=== PATIENT | female | born 1965 | race Caucasian/White ===

== ENCOUNTER 2018-02-13 09:17 | Outpatient (CLI) | payer OTHER | END 2018-02-13 09:18 | disposition home or self-care (01) | LOC: DI 09:17 | PROVIDERS: ATTEND Physician Assistant | DX: Q23.1 Congenital insufficiency of aortic valve (principal); E04.2 Nontoxic multinodular goiter | CPT/HCPCS: 76536; 93306 ==

== ENCOUNTER 2018-02-13 17:07 | Outpatient (CLI) | payer OTHER ==
--- NOTE | 2018-02-14 08:08 | Ultrasound Report ---
Reason: THYROID NODULE Procedure Date: 02/13/2018 Accession Number: [id number] / [id number] Procedure: US - Head or Neck Soft Tissue CPT Code: FULL RESULT: EXAM: THYROID ULTRASOUND EXAM DATE: 02/13/2018 05:14 PM. CLINICAL HISTORY: Thyroid nodule. COMPARISON: None. TECHNIQUE: Real time sonographic imaging of the thyroid was performed by the tools administrator. Multiple medical office representative static images were saved for review. FINDINGS: THYROID GLAND: Right Lobe: 5.3 x 2.1 x 1.7 cm, volume 10.0 cc. Normal background echotexture. Right Lobe Nodules: 1. Upper pole nodule with peripheral calcification and small peripheral blood flow, 0.5 cm in diameter. 2. Posterior medial mid nodule with peripheral calcification without blood flow, 0.8 x 0.8 x 1 cm. Left Lobe: 5.6 x 1.9 x 1.8 cm, volume 10.2 cc. Normal background echotexture. Left Lobe Nodules: 1. Lateral upper pole vascular echogenic nodule with hypoechoic halo, 0.7 x 0.5 x 0.7 cm. 2. Lateral midpole vascular echogenic nodule with peripheral hypoechoic halo, 0.5 cm in diameter. 3. Medial mid nonvascular nodule with hypoechoic halo heterogeneously, 0.8 x 0.8 x 0.7 cm. Isthmus: 0.3 cm AP. Isthmic Nodules: None. LYMPH NODES: No adenopathy demonstrated in the central or lateral compartment. IMPRESSION: 1. 3 vascular solid thyroid nodules, 2 in the in the left lobe and one in the right lobe, 0.5 cm and 0.7 cm in maximum dimension, sonographic features of low suspicion for malignancy. 2. Two nonvascular thyroid nodules, one in the right lobe and one in the left lobe, the dominant one of 1 cm located in the medial mid pole of the right lobe, sonographic features of very low suspicion for malignancy. 3. Continue thyroid ultrasound follow-up in 12-24 months is recommended. Management recommendations are based on 2015 [place] [employer] Management Guidelines for Adult Patients with Thyroid Nodules and Differentiated Thyroid Cancer. RADIA
== END 2018-02-13 17:08 | disposition home or self-care (01) ==
LOC: DI 17:07
PROVIDERS: ATTEND Physician Assistant
DX: E04.2 Nontoxic multinodular goiter (principal)
CPT/HCPCS: 76536

== ENCOUNTER 2018-04-03 17:50 | Outpatient (CLI) | payer OTHER ==
[2018-04-03] MEDS ORDERED: GADOBUTROL 10 MMOL/10 ML VIAL ONE (18:16)
[2018-04-03] MEDS ORDERED: GADOBUTROL 10 MMOL/10 ML VIAL IVP ONE (19:26)
--- NOTE | 2018-04-05 13:05 | MRI Report ---
Reason: COARCTATION OF AORTA,BICUSPID AORTIC VALVE Procedure Date: 04/03/2018 Accession Number: [id number] / [id number] Procedure: MRI - Aortic Arch Angio CPT Code: FULL RESULT: MRI ANGIOGRAM OF THE CHEST WITH AND WITHOUT CONTRAST INDICATION: Coarctation of aorta. Bicuspid aortic valve. COMPARISONS: None. TECHNIQUE: Multiphase axial coronal and oblique images were obtained. Pre- and postcontrast angiographic images were obtained of the thoracic aorta following intravenous administration of 9 mL of Gadavist. MIP reformations were performed. FINDINGS: Aorta: Maximal size of the mid ascending aorta measures approximately 3.6-3.7 cm. Aortic arch measures approximately 2.1-2.2 cm. Just distal to the takeoff of the left subclavian artery, the descending thoracic aorta measures approximately 1.7-1.8 cm. There is focal tapering and narrowing consistent with the reported coarctation in the proximal descending thoracic aorta distal to the takeoff of the left subclavian artery, which narrows to a segment which measures a minimal size approximately 10-11 mm. Just distal to the focal narrowing, the descending thoracic aorta measures 1.9-2 cm. No dissection. No significant collaterals are seen both proximal or distal to the coarctation. Pulmonary arteries are unremarkable with the mid main pulmonary artery measuring approximately 2.5 cm. Mediastinum: Heart size upper normal. Heterogeneous low signal intensity seen by aortic valve, which may be related to patient's history of a bicuspid aortic valve. No enlarged mediastinal or hilar lymph nodes are identified. Lungs and pleura: Unremarkable. No pleural effusions. Upper abdomen: Unremarkable. No bowel obstruction. No enlarged upper abdominal lymph nodes are seen. Retroperitoneum: Abdominal aorta and IVC are normal in caliber. There is thoracic/lumbar scoliosis. Mild degenerative changes. IMPRESSION: 1. Proximal descending thoracic aortic coarctation with a minimal size at the site of coarctation measuring approximately 10-11 mm. No evidence for significant collaterals. Mid ascending aorta measures up to 3.6-3.7 cm. 2. Heart size upper normal.
== END 2018-04-03 17:51 | disposition home or self-care (01) ==
LOC: DI 17:50
PROVIDERS: ATTEND Physician Assistant
DX: Q25.1 Coarctation of aorta (principal); Q23.1 Congenital insufficiency of aortic valve
CPT/HCPCS: 71555; A9585

== ENCOUNTER 2018-04-30 10:41 | Outpatient (CLI) | payer OTHER ==
--- NOTE | 2018-04-30 15:09 | XRAY Report ---
Reason: THORACIC BACK PAIN Procedure Date: 04/30/2018 Accession Number: [id number] / [id number] Procedure: WCP - Thoracic Spine 2 View CPT Code: FULL RESULT: EXAM: THORACIC SPINE RADIOGRAPHY. EXAM DATE: 04/30/2018 10:52 AM. CLINICAL HISTORY: Thoracic back pain. COMPARISON: None. TECHNIQUE: 2 views. FINDINGS: Alignment: Normal. No spondylolisthesis or scoliosis. Bones: No fractures or bone lesions. Disks: Normal. Disk heights are maintained. Soft Tissues: Normal. The visualized lungs and cardiomediastinal silhouette are normal. IMPRESSION: Normal thoracic spine radiography. RAD[facility]
== END 2018-04-30 10:42 | disposition home or self-care (01) ==
LOC: DI.WCP 10:41
PROVIDERS: ATTEND Physician Assistant
DX: M54.6 Pain in thoracic spine (principal)
CPT/HCPCS: 72070

== ENCOUNTER 2018-04-30 16:41 | Outpatient (CLI) | payer OTHER ==
--- NOTE | 2018-05-02 08:28 | Mammography Report ---
Reason: SCREENING MAMMO Procedure Date: 04/30/2018 Accession Number: [id number] / [id number] Procedure: [facility] - Screening Mammo w/Elvin CPT Code: FULL RESULT: EXAM: Screening Mammo w/Elvin DATE: 04/30/2018 5:19 PM CLINICAL HISTORY: Routine screening. No reported personal or family history of breast cancer. TECHNIQUE: Bilateral CC and MLO views were obtained. COMPARISON: None available at the time of this dictation. If comparisons are provided, an addendum report can be issued. FINDINGS: The breasts demonstrate heterogeneously dense fibroglandular parenchyma bilaterally. Right breast: There are no suspicious masses, calcifications or areas of distortion. There is symmetric duct ectasia. Reddish-brown nipple discharge occurred during both views of the mammogram noticed by the technologist. Left breast: There is symmetric duct ectasia. There is a 2 cm asymmetry resembling glandular tissue in the posterior upper inner breast seen best on 3-D imaging, reference MLO slice 50 and CC slice 43. In the lateral subareolar breast, there is a mostly circumscribed partially obscured 14 mm oval mass again seen best on 3-D imaging, reference MLO slice 24 and CC slice 20. No suspicious calcifications or areas of distortion. IMPRESSION: Right breast: Nonspontaneous possibly bloody nipple discharge noted during performance of screening mammography. Incomplete. BI-RADS Category 0. Recommend additional imaging with spot compression mammography in the subareolar breast and subareolar ultrasound. Left breast: Posterior upper inner asymmetry and lateral subareolar mass require additional imaging. Incomplete. BI-RADS Category 0. Recommend additional imaging and ultrasound. BI-RADS CATEGORY 0: Incomplete examination STANDARD QUALIFYING STATEMENTS: 1. This examination was not reviewed with the aid of Computer-Aided Detection (CAD). 2. A negative or benign imaging report should not preclude biopsy if clinically suspicious findings are present. 3. Dense breasts may obscure an underlying neoplasm. 4. This examination was reviewed with the aid of 3D breast imaging (tomosynthesis).
== END 2018-04-30 16:42 | disposition home or self-care (01) ==
LOC: DI 16:41
DX: Z12.31 Encounter for screening mammogram for malignant neoplasm of breast (principal)
CPT/HCPCS: 77063; 77067

== ENCOUNTER 2018-05-13 11:05 | Outpatient (CLI) | payer OTHER ==
--- NOTE | 2018-05-13 15:32 | Mammography Report ---
Reason: ABN MAMMO ADDITIONAL VIEWS Procedure Date: 05/13/2018 Accession Number: [id number] / [id number] Procedure: [facility]ORIA - Diagnostic Dig Bilat CPT Code: FULL RESULT: EXAM: Diagnostic Dig Bilat DATE: 05/13/2018 12:28 PM CLINICAL HISTORY: Single episode of nonspontaneous bloody nipple discharge from the right nipple during screening mammogram procedure 04/30/2018. Recall from screening for asymmetry upper inner left breast. No reported personal or family history of breast cancer. TECHNIQUE: (B) - Bilateral CC and MLO cone magnification. Bilateral 90 degree 2-D 3-D mammography. Real-time ultrasound was performed by both the technologist and the radiologist. COMPARISON: 04/30/2018 through 08/25/2013 FINDINGS: Right breast: There are no suspicious masses, calcifications or areas of distortion. There is stable duct ectasia and milk of calcium calcifications noted. Targeted ultrasound of the nipple and periareolar breast in a wide area is performed by both the technologist and the radiologist. There is duct ectasia with multiple anechoic fluid distended ducts. Few ducts show minimal low-level mobile internal echoes. No intraductal masses or concerning sonographic findings Left breast: Additional images reconfirm a 15 mm new asymmetry in the posterior upper inner breast at approximately 11:00, 12 cm from the nipple. There are no suspicious calcifications or areas of distortion. Stable duct ectasia as well as a long-term stable oval mass in the lateral subareolar breast consistent with cyst. Targeted ultrasound at 11:00, 8 cm from the nipple demonstrates sonographic correlate to mammographic finding as a mixed hypoechoic/hyperechoic, parallel orientation, nonvascular, non-mass finding measuring 14 x 9 x 6 mm. There is an a smaller non-circumscribed hypoechoic core surrounded by a thicker rind of hyperechoic tissue. PARENCHYMAL PATTERN: (D) - The breasts demonstrate heterogeneously dense fibroglandular parenchyma bilaterally. IMPRESSION: Right breast: Benign imaging findings. No imaging findings to correspond to single episode of nonspontaneous bloody nipple discharge. Probably benign. BI-RADS Category 3. Clinical follow-up for recurrence of nipple discharge is recommended; patient was instructed to seek further evaluation for recurrence of symptoms or new symptoms/concerns. Otherwise, recommend diagnostic mammogram and sonography in 6 months to ensure expected stability. Left breast: 15 mm asymmetry posterior upper inner breast corresponds to a non-mass finding at ultrasound 11:00 8 cm from the nipple. Suspicious. BI-RADS Category 4. Ultrasound-guided needle biopsy and marker placement is recommended. Biopsy scheduling was facilitated at the time of this imaging appointment. RECOMMENDATION: (BIOPSY) - left breast.; (6MOS) -recommend 6 month follow-up imaging right breast. BI-RADS CATEGORY: STANDARD QUALIFYING STATEMENTS: 1. This examination was not reviewed with the aid of Computer-Aided Detection (CAD). 2. A negative or benign imaging report should not preclude biopsy if clinically suspicious findings are present. 3. Dense breasts may obscure an underlying neoplasm. 4. This examination was reviewed with the aid of 3D breast imaging (tomosynthesis).
--- NOTE | 2018-05-13 15:36 | Ultrasound Report ---
Reason: ABNORMAL FINDINGS ON MAMMOGRAM Procedure Date: 05/13/2018 Accession Number: [id number] / [id number] Procedure: US - Breast Unilateral Limited CPT Code: FULL RESULT: Reason: ABN MAMMO ADDITIONAL VIEWS Procedure Date: 05/13/2018 Accession Number: [id number] / [id number] Procedure: GLORIA - Diagnostic Dig Bilat CPT Code: FULL RESULT: EXAM: Diagnostic Dig Bilat DATE: 05/13/2018 12:28 PM CLINICAL HISTORY: Single episode of nonspontaneous bloody nipple discharge from the right nipple during screening mammogram procedure 04/30/2018. Recall from screening for asymmetry upper inner left breast. No reported personal or family history of breast cancer. TECHNIQUE: (B) - Bilateral CC and MLO cone magnification. Bilateral 90 degree 2-D 3-D mammography. Real-time ultrasound was performed by both the technologist and the radiologist. COMPARISON: 04/30/2018 through 08/25/2013 FINDINGS: Right breast: There are no suspicious masses, calcifications or areas of distortion. There is stable duct ectasia and milk of calcium calcifications noted. Targeted ultrasound of the nipple and periareolar breast in a wide area is performed by both the technologist and the radiologist. There is duct ectasia with multiple anechoic fluid distended ducts. Few ducts show minimal low-level mobile internal echoes. No intraductal masses or concerning sonographic findings Left breast: Additional images reconfirm a 15 mm new asymmetry in the posterior upper inner breast at approximately 11:00, 12 cm from the nipple. There are no suspicious calcifications or areas of distortion. Stable duct ectasia as well as a long-term stable oval mass in the lateral subareolar breast consistent with cyst. Targeted ultrasound at 11:00, 8 cm from the nipple demonstrates sonographic correlate to mammographic finding as a mixed hypoechoic/hyperechoic, parallel orientation, nonvascular, non-mass finding measuring 14 x 9 x 6 mm. There is an a smaller non-circumscribed hypoechoic core surrounded by a thicker rind of hyperechoic tissue. PARENCHYMAL PATTERN: (D) - The breasts demonstrate heterogeneously dense fibroglandular parenchyma bilaterally. IMPRESSION: Right breast: Benign imaging findings. No imaging findings to correspond to single episode of nonspontaneous bloody nipple discharge. Probably benign. BI-RADS Category 3. Clinical follow-up for recurrence of nipple discharge is recommended; patient was instructed to seek further evaluation for recurrence of symptoms or new symptoms/concerns. Otherwise, recommend diagnostic mammogram and sonography in 6 months to ensure expected stability. Left breast: 15 mm asymmetry posterior upper inner breast corresponds to a non-mass finding at ultrasound 11:00 8 cm from the nipple. Suspicious. BI-RADS Category 4. Ultrasound-guided needle biopsy and marker placement is recommended. Biopsy scheduling was facilitated at the time of this imaging appointment. RECOMMENDATION: (BIOPSY) - left breast.; (6MOS) -recommend 6 month follow-up imaging right breast. BI-RADS CATEGORY: STANDARD QUALIFYING STATEMENTS: 1. This examination was not reviewed with the aid of Computer-Aided Detection (CAD). 2. A negative or benign imaging report should not preclude biopsy if clinically suspicious findings are present. 3. Dense breasts may obscure an underlying neoplasm. 4. This examination was reviewed with the aid of 3D breast imaging (tomosynthesis).
== END 2018-05-13 11:06 | disposition home or self-care (01) ==
LOC: DI 11:05
PROVIDERS: ATTEND Physician Assistant
DX: R92.8 Other abnormal and inconclusive findings on diagnostic imaging of breast (principal); N60.41 Mammary duct ectasia of right breast; N60.42 Mammary duct ectasia of left breast
CPT/HCPCS: 76642; 77062; 77066

== ENCOUNTER 2018-05-15 10:47 | Outpatient (CLI) | payer OTHER ==
[~2018-05-15 10:47] MED LIST: BUFFERED LIDOCAINE 10 ML SYRINGE ONE
--- NOTE | 2018-05-15 12:48 | Mammography Report ---
Reason: POST BIOPSY CLIP FILMS Procedure Date: 05/15/2018 Accession Number: [id number] / [id number] Procedure: [facility]OR[facility] - Diagnostic Dig LT CPT Code: FULL RESULT: EXAM: Biopsy Breast Core, Diagnostic Dig LT DATE: 05/15/2018 12:32 PM CLINICAL HISTORY: Developing asymmetry with sonographic correlate posterior upper inner left breast, 11:00 8 cm from nipple, for biopsy. TECHNIQUE: Informed consent was obtained. Entry site was localized and marked on the skin, and the site was prepped and draped in the usual sterile fashion. The skin site and deeper tissues were anesthetized with 10 cc of 1% buffered lidocaine. A small dermatotomy was made in the skin. A 13-gauge needle guide was advanced to the periphery of the sonographic finding. A total of 4, 14-gauge core biopsies were obtained with an Achieve needle system with returns of long cores of tissue. Samples were sent in formalin for histologic analysis. A cork shaped clip was placed at the biopsy site. Devices were removed, hemostasis was achieved, and the area was prepped and draped in the usual fashion. The patient tolerated the procedure well and without complication. Postprocedural mammogram shows biopsy clip in expected location, associated with the mammographic asymmetry of concern in the posterior upper inner breast. COMPARISON: 05/13/2018 through 08/25/2013 FINDINGS/IMPRESSION: Successful ultrasound-guided biopsy of developing asymmetry upper inner left breast, 11:00 8 cm from the nipple. Final recommendations are pending results of the histology; an addendum to this report will be issued when histology results are available for radiologic/pathologic concordance.
[2018-05-15] MEDS ORDERED: BUFFERED LIDOCAINE 10 ML SYRINGE IU ONE (13:18)
== END 2018-05-15 10:48 | disposition home or self-care (01) ==
LOC: DI 10:47
PROVIDERS: ATTEND Physician Assistant
DX: R92.8 Other abnormal and inconclusive findings on diagnostic imaging of breast (principal)
CPT/HCPCS: 19083

== ENCOUNTER 2018-06-27 07:33 | Outpatient (CLI) | payer OTHER ==
--- NOTE | 2018-06-27 10:45 | Ultrasound Report ---
Reason: ABDOMINAL PAIN, RUQ Procedure Date: 06/27/2018 Accession Number: [id number] / [id number] Procedure: US - Abdomen Limited CPT Code: FULL RESULT: EXAM: ABDOMEN ULTRASOUND LIMITED, RUQ EXAM DATE: 06/27/2018 08:09 AM. CLINICAL HISTORY: Abdominal pain, right upper quadrant. COMPARISON: None. TECHNIQUE: Real-time scanning was performed with static images obtained. FINDINGS: Liver: Normal in size and echotexture. 14.8 cm. Main portal vein flow: Hepatopetal. Gallbladder: Normal. No stones, wall thickening, or sonographic Katz's sign. Biliary System: CBD measures 4 mm. No intrahepatic or extrahepatic ductal dilatation. Other: The visualized right kidney appears normal. IMPRESSION: Normal. No cholelithiasis or cholecystitis. RADIA
== END 2018-06-27 07:34 | disposition home or self-care (01) ==
LOC: DI 07:33
PROVIDERS: ATTEND Internal Medicine Gastroenterology
DX: R10.11 Right upper quadrant pain (principal)
CPT/HCPCS: 76705

== ENCOUNTER 2018-07-02 12:10 | Outpatient (CLI) | payer OTHER ==
[2018-07-02] MEDS ORDERED: IOVERSOL 320 50 ML VIAL ONE (12:23)
[2018-07-02] MEDS ORDERED: IOVERSOL 320 100 ML VIAL IVP ONE ×2 (12:24→13:46)
[2018-07-02] MEDS ORDERED: IOVERSOL 320 50 ML VIAL PO ONE (13:46)
--- NOTE | 2018-07-02 14:11 | CT Report ---
Reason: ABDOMINAL PAIN,RIGHT UPPER QUADRANT,LOWER QUADRANT Procedure Date: 07/02/2018 Accession Number: [id number] / [id number] Procedure: CT - Abdomen/Pelvis W CPT Code: FULL RESULT: EXAM: CT ABDOMEN AND PELVIS EXAM DATE: 07/02/2018 01:42 PM. CLINICAL HISTORY: Right upper quadrant pain. COMPARISONS: AORTIC ARCH ANGIO 04/03/2018 6:22 PM. TECHNIQUE: Routine helical CT imaging was performed through the abdomen and pelvis. IV contrast: 100 mL of Optiray 320. Enteric contrast: Yes. Reconstructions: Coronal and sagittal. In accordance with CT protocol optimization, one or more of the following dose reduction techniques were utilized for this exam: automated exposure control, adjustment of mA and/or KV based on patient size, or use of iterative reconstructive technique. FINDINGS: Lung Bases: Unremarkable. Liver: Normal. No masses. Gallbladder/Bile Ducts: Unremarkable. Spleen: Normal. Pancreas: Normal. Adrenal Glands: Normal. Kidneys: Normal. No masses or hydronephrosis. Peritoneal Cavity/Bowel: No bowel obstruction. No free fluid, free air or adenopathy. No masses or acute inflammatory process. The appendix is well visualized and normal. Pelvic Organs: Pessary is noted. Suspect fibroid uterus. Vasculature: No aneurysms or other significant abnormality. Bones: No significant abnormality. Other: None. IMPRESSION: The etiology of the patient's abdominal pain is not identified. RADIA
== END 2018-07-02 12:11 | disposition home or self-care (01) ==
LOC: DI 12:10
PROVIDERS: ATTEND Family Medicine
DX: R10.11 Right upper quadrant pain (principal); R10.31 Right lower quadrant pain
CPT/HCPCS: 74177; Q9967